=== PATIENT | male | born 1955 | race Caucasian/White ===

== ENCOUNTER → 2017-11-20 | Emergency (ER) | payer OTHER ==
[~2017-11-20] VITALS: Ht 167.6 cm; Wt 68.0 kg
[~2017-11-20] MED LIST: AMOXICILLIN500 MG PO
--- OUTSIDE RECORDS SUMMARY | 2017-11-20 17:51 | XMS | Clinical Summary ---
Demographics + + + | Address | [address] | | | [place] [address] | + + + | Home Phone | | + + + | Preferred Language | Unknown | + + + | Marital Status | Single | + + + | Alevism Affiliation | CAT | + + + | Race | or | + + + | Ethnic Group | Not or | + + + Author + + + | Author | [facility] | + + + | Organization | [facility] | + + + | Address | Unknown | + + + | Phone | Unavailable | + + + Support + + + + + | Name | Relationship | Address | Phone | + + + + + | Ro Ambrocio | ECON | [address] | | | | | [place] [address] | | + + + + + Care Team Providers + +------+ + | Care Ready Mix Truck Driver Name | Role | Phone | + +------+ + PP | Unavailable | + +------+ + Source Comments BRIT is fully live on both [facility] Ambulatory and [facility] InPatient.[facility] Allergies No Known Allergies Current Medications + + +-------+---------+------+------+-------+ | Prescription | Sig. | Disp. | Refills | Star | End | Statu | | | | | | t | Date | s | | | | | | Date | | | + + +-------+---------+------+------+-------+ | oxycodone, | Take 1-3 Tabs by | 120 | 0 | 12/2 | | Activ | | immediate release, 5 | mouth every four | | | 8/20 | | e | | mg Oral Tablet | hours as needed for | | | 09 | | | | | moderate pain. | | | | | | + + +-------+---------+------+------+-------+ | ranitidine 150 mg | Take 1 Tab by mouth | 14 | 0 | 12/2 | | Activ | | Oral Tablet | two times daily. | | | 8/20 | | e | | | | | | 09 | | | + + +-------+---------+------+------+-------+ | sodium chloride 1 | Take 2 Tabs by mouth | 42 | 0 | 12/2 | | Activ | | gram Oral Tablet | three times daily | | | 8/20 | | e | | | with meals. | | | 09 | | | + + +-------+---------+------+------+-------+ Active Problems + + + | Problem | Noted Date | + + + | SDH (subdural hematoma) (HCC) | 03/24/2009 | + + + | L Epidural hematoma | 03/24/2009 | + + + | L Occipital skull fracture | 03/24/2009 | + + + | Acute pain due to trauma | 03/24/2009 | + + + | Fall | 03/24/2009 | + + + | Chronic ETOH user | 03/24/2009 | + + + Immunizations + + + + | Name | Dates Previously Given | Next Due | + + + + | Influenza, split | 03/25/2009 | | + + + + Social History + +-------+ +--------+------+ | Tobacco Use | Types | Packs/Day | Years | Date | | | | | Used | | + +-------+ +--------+------+ | Current Every Day | | | | | | Smoker | | | | | + +-------+ +--------+------+ + + +---------+ + | Alcohol Use | Drinks/We | oz/Week | Comments | | | ek | | | + + +---------+ + | Yes | | | | + + +---------+ + + + + | Sex Assigned at | Date Recorded | | | | + + + | Not on file | | + + + Last Filed Vital Signs + + + + | Vital Sign | Reading | Time Taken | + + + + | Blood Pressure | 127/83 | 04/13/2009 1:52 PM PST | + + + + | Pulse | 80 | 04/13/2009 1:52 PM PST | + + + + | Temperature | 36.6 C (97.9 F) | 03/28/2009 9:17 AM PST | + + + + | Respiratory Rate | 16 | 04/13/2009 1:52 PM PST | + + + + | Oxygen Saturation | 97% | 03/28/2009 9:17 AM PST | + + + + | Inhaled Oxygen | - | - | | Concentration | | | + + + + | Weight | 86.1 kg (189 lb 13.1 | 04/13/2009 1:52 PM PST | | | oz) | | + + + + | Height | - | - | + + + + | Body Mass Index | - | - | + + + + Plan of Treatment + + + + + | Health Maintenance | Due Date | Last Done | Comments | + + + + + | INFLUENZA VACCINE | | 03/25/2009 | | | (FLU SHOT) | 8 | | | + + + + + Results Not on filefrom Last 3 Months Insurance + +--------+ +--------+-------+---------+ | Payer | Benefi | Subscriber | Type | Phone | Address | | | t Plan | ID | | | | | | / | | | | | | | Group | | | | | + +--------+ +--------+-------+---------+ | [employer] | | xxxxxxxxx | Agency | | | | SERVICE | | | | | | | | HEALTH | | | | | | | | | | | | | | SERVIC | | | | | | | E | | | | | + +--------+ +--------+-------+---------+ + +--------+ +--------+ + + | Guarantor Name | Accoun | Relation to | Date | Phone | Billing Address | | | t Type | Patient | of | | | | | | | | | | + +--------+ +--------+ + + | ALIYAH LUTZ | Person | Self [birth year] | Home: | [address] | | | al/Fam | | 1955 | +- | [place] [address] | | | marah | | | [address] | | + +--------+ +--------+ + + | ALIYAH ULTZ | Agency | Self | [birth year] | Home: | [address] | | | | | 1955 | +- | [place] [address] | | | | | | [address] | | + +--------+ +--------+ + +"
--- OUTSIDE RECORDS SUMMARY | 2017-11-20 17:51 | XMS | Clinical Summary ---
Demographics + + + | Address | [address] | | | [place] [address] | + + + | Home Phone | | + + + | Preferred Language | Unknown | + + + | Marital Status | Single | + + + | Jain Affiliation | CAT | + + + [...] | | | | | [place] [address] | | + + + + + Care Team Providers + +------+ + | Care Wire Stitcher Operator Name | Role | Phone | + +------+ + PP | Unavailable | + +------+ + Source Comments BRIT is fully live on both [facility] Ambulatory and [facility] InPatient.[facility] Allergies No Known Allergies Current Medications [...] | | | + +--------+ +--------+-------+---------+ | [facility] | | xxxxxxxxx | Agency | [...] | Self | [birth year] | Home: | [address] | | | al/Fam | | 1955 | +- | [place] [address] | | | marah | | | [address] | | + +--------+ +--------+ + + | ALIYAH LUTZ | Agency | Self | [birth year] | Home: | [address] | | | | | 1955 | +- | [place] [address] | | | | | | [address] | | + +--------+ +--------+ + +"
--- OUTSIDE RECORDS SUMMARY | 2017-11-20 17:51 | XMS | Clinical Summary ---
Demographics + + + | Address | [address] | | | [place] [address] | + + + | Home Phone | | + + + | Preferred Language | Unknown | + + + | Marital Status | Unknown | + + + | Voodoo Affiliation | Unknown | + + + | Race | Unknown | + + + | Ethnic Group | Unknown | + + + Author + + + | Author | [facility] | | | and [place] | + + + | Organization | [facility] | | | and [place] | + + + | Address | Unknown | + + + | Phone | Unavailable | + + + Care Team Providers + +------+ + | Care Business Unit Leader Name | Role | Phone | + +------+ + PP | Unavailable | + +------+ + Allergies Not on File Current Medications Not on file Active Problems Not on file Social History + +-------+ +--------+------+ | Tobacco Use | Types | Packs/Day | Years | Date | | | | | Used | | + +-------+ +--------+------+ | Never Assessed | | | | | + +-------+ +--------+------+ + + + | Sex Assigned at | Date Recorded | | | | + + + | Not on file | | + + + Plan of Treatment + + + + + | Health Maintenance | Due Date | Last Done | Comments | + + + + + | Vaccine: | | | | | Dtap/Tdap/Td (1 - | 7 | | | | Tdap) | | | | + + + + + | Vaccine: Zoster (1 | | | | | of 2) | 8 | | | + + + + + | Vaccine: Influenza | | | | | (#1) | 8 | | | + + + + + Results Not on filefrom Last 3 Months"
--- OUTSIDE RECORDS SUMMARY | 2017-11-20 17:52 | XMS | Clinical Summary ---
Demographics + + + | Address | [address] | | | [place] [address] | + + + | Home Phone | | + + + | Preferred Language | Unknown | + + + | Marital Status | Unknown | + + + | Zoroastrian Affiliation | Unknown | + + + | Race | Unknown | + + + | Ethnic Group | Unknown | + + + Author + + + | Author | [facility] | | | and [place] | + + + | Organization | [facility] | | | and [place] | + + + | Address | Unknown | + + + | Phone | Unavailable | + + + Care Team Providers + +------+ + | Care Medical Health Researcher Name | Role | Phone | + [...]
== END ==
LOC: ED 13:05
DX: S02.2XXA Fracture of nasal bones, initial encounter for closed fracture (principal); F10.129 Alcohol abuse with intoxication, unspecified; S01.81XA Laceration without foreign body of other part of head, initial encounter; W01.198A Fall on same level from slipping, tripping and stumbling with subsequent striking against other object, initial encounter
CPT/HCPCS: 70450; 70486; 71045; 80053; 85025; 96360; 99284; G0480; J7030

== ENCOUNTER 2018-12-09 02:24 | Emergency (ER) | payer OTHER ==
[~2018-12-09] VITALS: Ht 167.6 cm; Wt 68.0 kg
== END 2018-12-09 03:20 | disposition home or self-care (01) ==
LOC: ED 02:24
PROC: 0HQFXZZ Repair Right Hand Skin, External Approach (ICD-10-PCS; principal; 2018-12-09)
DX: S61.411A Laceration without foreign body of right hand, initial encounter (principal); F17.200 Nicotine dependence, unspecified, uncomplicated; X58.XXXA Exposure to other specified factors, initial encounter
CPT/HCPCS: 12001; 90471; 90715; 99283-25